=== PATIENT | female | born 1940 | race Caucasian/White ===

== ENCOUNTER 2017-08-12 09:37 | Day surgery (SDC) | payer OTHER, BC ==
[2017-08-05 13:47] VITALS: BMI 30.8
[2017-08-12] MEDS ORDERED: PROPOFOL 20 ML ONE ×4 (09:58→11:00)
[2017-08-12] MEDS ORDERED: ePHEDrine SULFATE 50 MG/1 ML AMPULE ONE (11:14)
[2017-08-12 12:11] VITALS: TEMP 97.9
[2017-08-12 12:21] VITALS: BP 132/78; PULSE 89
== END 2017-08-12 12:21 | disposition home or self-care (01) ==
LOC: FASU-ENDO 09:37
PROVIDERS: ATTEND Internal Medicine Gastroenterology
PROC: 0DJD8ZZ Inspection of Lower Intestinal Tract, Via Natural or Artificial Opening Endoscopic (ICD-10-PCS; principal; 2017-08-12 11:07)
DX: Z12.11 Encounter for screening for malignant neoplasm of colon (principal); Z80.0 Family history of malignant neoplasm of digestive organs

== ENCOUNTER 2023-06-20 07:49 | Day surgery (SDC) | payer OTHER, BC ==
[2023-06-20 09:21] VITALS: PULSE 80; TEMP 97
[2023-06-20 09:24] VITALS: BP 103/65; RESP 18
== END 2023-06-20 09:35 | disposition home or self-care (01) ==
LOC: FASU-ENDO 07:49
PROVIDERS: ATTEND Internal Medicine Gastroenterology
PROC: 0DJD8ZZ Inspection of Lower Intestinal Tract, Via Natural or Artificial Opening Endoscopic (ICD-10-PCS; principal; 2023-06-20 08:45)
DX: Z12.11 Encounter for screening for malignant neoplasm of colon (principal); K57.30 Diverticulosis of large intestine without perforation or abscess without bleeding; Z80.0 Family history of malignant neoplasm of digestive organs